=== PATIENT | male | born 1970 | race American Indian/Alaskan Native ===

== ENCOUNTER 2021-12-04 14:32 | Emergency (ER) | payer SELFPAY ==
--- NOTE | 2021-12-04 15:54 | XRay Report ---
CHEST 1 VIEW 12/04/2021 2:40 PM INDICATION / CLINICAL INFORMATION: Chest pain. COMPARISON: None available. FINDINGS: SUPPORT DEVICES: None. HEART / MEDIASTINUM: No significant abnormality. LUNGS / PLEURA: No significant pulmonary abnormality. No significant pleural effusion. No pneumothora x. ADDITIONAL FINDINGS: No significant additional findings. IMPRESSION: 1. No acute abnormality of the chest. Signer Name: Jayson Llamas MD Signed: 12/04/2021 3:46 PM Workstation Name: [id number]
[2021-12-04 15:56] LABS: Basophils % (Auto) 1.1 % (0.0-1.8); Hematocrit 32.8 % (35.5-45.6); Hemoglobin 11.4 gm/dl (11.8-15.2); Lymphocytes # (Auto) 1.6 K/mm3 (1.2-5.4); Lymphocytes % (Auto) 45.7 % (13.4-35.0); Mean Corpuscular HGB Conc 35 % (32-34); Mean Corpuscular Volume 101 fl (84-94); Monocytes # (Auto) 0.4 K/mm3 (0.0-0.8); Monocytes % (Auto) 12.9 % (0.0-7.3); Platelet Count 116 K/mm3 (140-440); Red Blood Count 3.24 M/mm3 (3.65-5.03); Red Cell Distribution Width 15.2 % (13.2-15.2)
[2021-12-04 16:20] LABS: Alanine Aminotransferase 30 units/L (7-56); Albumin 4.1 g/dL (3.9-5); Blood Urea Nitrogen 3 mg/dL (9-20); Calcium 8.3 mg/dL (8.4-10.2); Hemolysis Index 4
[2021-12-04 16:22] LABS: BUN/Creatinine Ratio 5
[2021-12-04] MEDS ORDERED: NITROGLYCERIN 0.4 MG TAB SUBL SL ONE (16:54)
--- NOTE | 2021-12-04 17:06 | Emergency Department Report ---
ED General Adult HPI - General Chief complaint: Chest Pain Stated complaint: CHEST PAIN Time Seen by Provider: 12/04/21 15:23 Source: patient, EMS Mode of arrival: Stretcher Limitations: No Limitations - History of Present Illness Initial comments: Patient presents with complaints of chest pain, retrosternal, dull/heavy, non- radiating, 5/10, not worsened or relieved by anything. Denies SOB, palpitations, diaphoresis, leg swelling, pain in his/her calves, recent travel, immobilization, surgery, hospitalization, sex HRT use. Severity scale (0 -10): 4 - Related Data Allergies Allergy/AdvReac Type Severity Reaction Status Date / Time No Known Allergies Allergy Verified 12/04/21 14:39 ED Review of Systems ROS: Stated complaint: CHEST PAIN Other details as noted in HPI Comment: All other systems reviewed and negative Constitutional: denies: chills, fever ED Past Medical Hx - Past Medical History Previous Medical History?: Yes Hx Hypertension: Yes Hx Diabetes: Yes - Surgical History Past Surgical History?: No - Social History Smoking Status: Current Every Day Smoker ED Physical Exam - General Limitations: No Limitations General appearance: alert, in no apparent distress - Head Head exam: Present: atraumatic, normocephalic - Eye Eye exam: Present: PERRL, EOMI - ENT ENT exam: Present: mucous membranes moist, other (airway patent) - Neck Neck exam: Present: other (supple; no JVD) - Respiratory Respiratory exam: Present: other (good air entry, nml I:E, CTAB, no use of PEDRO LUIS) - Cardiovascular Cardiovascular Exam: Present: regular rate. Absent: rubs, gallop - GI/Abdominal GI/Abdominal exam: Present: soft, normal bowel sounds. Absent: distended, tenderness, guarding, rebound - Extremities Exam Extremities exam: Present: calf tenderness (bilateral), other (no lower extremity edema) - Back Exam Back exam: Present: full ROM. Absent: tenderness - Neurological Exam Neurological exam: Present: alert, oriented X3, CN II-XII intact. Absent: motor sensory deficit ED Course Vital Signs 12/04/21 12/04/21 12/04/21 14:36 15:11 17:20 Temperature 98 F 97.8 F Pulse Rate 120 H 98 H 90 Respiratory 18 16 Rate Blood Pressure 139/94 163/80 Blood Pressure 160/100 134/86 [Right] O2 Sat by Pulse 97 92 Oximetry 12/04/21 17:22 Temperature Pulse Rate 90 Respiratory 14 Rate Blood Pressure Blood Pressure 163/108 [Right] O2 Sat by Pulse 100 Oximetry ED Medical Decision Making - Lab Data Result diagrams: 12/04/21 15:41 12/04/21 15:41 Laboratory Tests 12/04/21 12/04/21 12/04/21 15:41 15:41 15:41 WBC 3.5 L RBC 3.24 L Hgb 11.4 L Hct 32.8 L MCV 101 H MCH 35 H MCHC 35 H RDW 15.2 Plt Count 116 L Lymph % (Auto) 45.7 H [place] % (Auto) 12.9 H Eos % (Auto) 1.0 Baso % (Auto) 1.1 Lymph # (Auto) 1.6 [place] # (Auto) 0.4 Eos # (Auto) 0.0 Baso # (Auto) 0.0 Seg Neutrophils % 39.3 L Seg Neutrophils # 1.4 L D-Dimer 759.36 H Sodium 145 Potassium 3.2 L Chloride 99.2 Carbon Dioxide 27 Anion Gap 22 BUN 3 L Creatinine 0.6 L Estimated GFR > 60 BUN/Creatinine Ratio 5 Glucose 232 H Calcium 8.3 L Total Bilirubin 0.80 AST 126 H ALT 30 Alkaline Phosphatase 54 Troponin T 0.012 Total Protein 7.5 Albumin 4.1 Albumin/Globulin Ratio 1.2 CXR: no acute cardiopulmonary process CTA chest: no PE or aortic dissection EKG: HR 90, SR, nml MI, narrow QRSTWI in II, III, aVF, V4 - V6, no significant ST elevations in contiguous leads - Medical Decision Making Diff dz: - likely 2/2 L cardiac strain from hypertensive emergency. Need to r/o ACS (HEART score of 6). Pneumonia, pneumothorax, PE, aortic dissection ruled out. Received aspirin 324 mg PO x 1, nitroglycerin 0.4 mg SL x 1. CP resolved. BP 2 34/120 -> 154/117 Critical Care Time: Yes Critical care time in (mins) excluding proc time.: 45 Critical care attestation.: If time is entered above; I have spent that time in minutes in the direct care of this critically ill patient, excluding procedure time. ED Disposition Clinical Impression: Chest pain, Accelerated hypertension Disposition: ADMITTED INPATIENT Is pt being admited?: Yes Does the pt Need Aspirin: No Condition: Stable Instructions: Nonspecific Chest Pain, Adult, Hypertension (ED) Referrals: PRIMARY CARE,MD [Primary Care Provider] - 3-5 Days Time of Disposition: 18:45 (Patient admitted to Dr. Danielson. Sign out was given by me to the admitting physician. )
[2021-12-04 17:24] VITALS: BP 163/108
--- NOTE | 2021-12-04 17:42 | Cat Scan Report ---
CTA CHEST WITH CONTRAST INDICATION / CLINICAL INFORMATION: Chest pain; elevated D-dimer; accelerated HTN. TECHNIQUE: Axial CT images were obtained through the chest after injection of 100 cc Omni 350 IV cont rast. 3 plane MIP and/or 3D reconstructions were produced. All CT scans at this location are performe d using CT dose reduction for ALARA by means of automated exposure control. COMPARISON: None available. FINDINGS: PULMONARY EMBOLUS: None. THORACIC AORTA: No significant abnormality. HEART: No significant abnormality. CORONARY ARTERY CALCIFICATION: Absent -- None. MEDIASTINUM / RICK: No significant abnormality. PLEURA: No pleural effusion. No pneumothorax. LUNGS: No acute air space or interstitial disease. ADDITIONAL FINDINGS: None. UPPER ABDOMEN: Marked hepatic steatosis. SKELETAL STRUCTURES: No significant osseous abnormality. IMPRESSION: 1. No CT evidence for pulmonary embolism. 2. No acute findings. 3. Hepatic steatosis Signer Name: Alec Scott MD Signed: 12/04/2021 5:38 PM Workstation Name: [id number]
[2021-12-04] MEDS ORDERED: ASPIRIN 81 MG TAB CHEW PO ONE (19:27)
--- NOTE | 2021-12-04 22:40 | History and Physical Report ---
History of Present Illness Date of examination: 12/04/21 History of present illness: Patient presents with complaints of chest pain, retrosternal, dull/heavy, non- radiating, 5/10, not worsened or relieved by anything. Denies SOB, palpitations, diaphoresis, leg swelling, pain in his/her calves, recent travel, immobiliza tion, surgery, hospitalization, sex HRT use. Severity scale (0 -10): 4 - Related Data Allergies Allergy/AdvReac Type Severity Reaction Status Date / Time No Known Allergies Allergy Verified 12/04/21 14:39 - Past Medical History Previous Medical History?: Yes - Surgical History Past Surgical History?: No - Social History Smoking Status: Current Every Day Smoker Review of Systems ROS: Stated complaint: CHEST PAIN Other details as noted in HPI Comment: All other systems reviewed and negative Constitutional: denies: chills, fever Medications and Allergies Allergies Allergy/AdvReac Type Severity Reaction Status Date / Time No Known Allergies Allergy Verified 12/04/21 14:39 Exam - Constitutional Vitals: Temp Pulse Resp BP Pulse Ox 97.8 F 90 14 163/108 100 12/04/21 15:11 12/04/21 17:22 12/04/21 17:22 12/04/21 17:22 12/04/21 17:22 HEART Score - HEART Score Troponin: Troponin T 0.012 ng/mL (0.00-0.029) 12/04/21 15:41 Results - Labs CBC & Chem 7: 12/04/21 15:41 12/04/21 15:41 Labs: Laboratory Last Values WBC 3.5 K/mm3 (4.5-11.0) L 12/04/21 15:41 RBC 3.24 M/mm3 (3.65-5.03) L 12/04/21 15:41 Hgb 11.4 gm/dl (11.8-15.2) L 12/04/21 15:41 Hct 32.8 % (35.5-45.6) L 12/04/21 15:41 MCV 101 fl (84-94) H 12/04/21 15:41 MCH 35 pg (28-32) H 12/04/21 15:41 MCHC 35 % (32-34) H 12/04/21 15:41 RDW 15.2 % (13.2-15.2) 12/04/21 15:41 Plt Count 116 K/mm3 (140-440) L 12/04/21 15:41 Lymph % (Auto) 45.7 % (13.4-35.0) H 12/04/21 15:41 [place] % (Auto) 12.9 % (0.0-7.3) H 12/04/21 15:41 Eos % (Auto) 1.0 % (0.0-4.3) 12/04/21 15:41 Baso % (Auto) 1.1 % (0.0-1.8) 12/04/21 15:41 Lymph # (Auto) 1.6 K/mm3 (1.2-5.4) 12/04/21 15:41 [place] # (Auto) 0.4 K/mm3 (0.0-0.8) 12/04/21 15:41 Eos # (Auto) 0.0 K/mm3 (0.0-0.4) 12/04/21 15:41 Baso # (Auto) 0.0 K/mm3 (0.0-0.1) 12/04/21 15:41 Seg Neutrophils % 39.3 % (40.0-70.0) L 12/04/21 15:41 Seg Neutrophils # 1.4 K/mm3 (1.8-7.7) L 12/04/21 15:41 D-Dimer 759.36 ng/mlDDU (0-234) H 12/04/21 15:41 Sodium 145 mmol/L (137-145) 12/04/21 15:41 Potassium 3.2 mmol/L (3.6-5.0) L 12/04/21 15:41 Chloride 99.2 mmol/L (98-107) 12/04/21 15:41 Carbon Dioxide 27 mmol/L (22-30) 12/04/21 15:41 Anion Gap 22 mmol/L 12/04/21 15:41 BUN 3 mg/dL (9-20) L 12/04/21 15:41 Creatinine 0.6 mg/dL (0.8-1.3) L 12/04/21 15:41 Estimated GFR > 60 ml/min 12/04/21 15:41 BUN/Creatinine Ratio 5 % 12/04/21 15:41 Glucose 232 mg/dL (75-100) H 12/04/21 15:41 Calcium 8.3 mg/dL (8.4-10.2) L 12/04/21 15:41 Total Bilirubin 0.80 mg/dL (0.1-1.2) 12/04/21 15:41 AST 126 units/L (5-40) H 12/04/21 15:41 ALT 30 units/L (7-56) 12/04/21 15:41 Alkaline Phosphatase 54 units/L (35-129) 12/04/21 15:41 Troponin T 0.012 ng/mL (0.00-0.029) 12/04/21 15:41 Total Protein 7.5 g/dL (6.3-8.2) 12/04/21 15:41 Albumin 4.1 g/dL (3.9-5) 12/04/21 15:41 Albumin/Globulin Ratio 1.2 % 12/04/21 15:41
[2021-12-04] MEDS ORDERED: MORPHINE 2 MG/1 ML INJ IV PRN (22:41)
[2021-12-04] MEDS ORDERED: ACETAMINOPHEN 325 MG TAB PO PRN ×2 (22:41→22:44)
[2021-12-04] MEDS ORDERED: ONDANSETRON 4 MG/2 ML INJ IV PRN ×2 (22:41→22:44)
[2021-12-04] MEDS ORDERED: oxyCODONE /ACETAMINOPHEN 5-325MG TAB PO PRN (22:41)
[2021-12-04] MEDS ORDERED: SODIUM CHLORIDE 0.9% 1000 ML 1,000 ML IV SCH (22:45)
[2021-12-04] MEDS ORDERED: FAMOTIDINE 20 MG/2 ML INJ IV SCH (23:00)
--- NOTE | 2021-12-05 07:05 | Event Note ---
Date: 12/04/21 Admission orders were written Patient left AMA
[2021-12-05] MEDS ORDERED: HEPARIN 5,000 UNIT/1 ML VIAL SUB-Q SCH (10:00)
[2021-12-05] MEDS ORDERED: NICOTINE 14 MG/24 HR PATCH TD SCH (10:00)
--- NOTE | 2021-12-05 10:35 | Electrocardiograph Report ---
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
== END 2021-12-04 21:04 | disposition admitted as inpatient to this hospital (09) ==
LOC: ED 14:32
DX: I10 Essential (primary) hypertension (principal); E11.9 Type 2 diabetes mellitus without complications; F17.200 Nicotine dependence, unspecified, uncomplicated; Z79.899 Other long term (current) drug therapy
CPT/HCPCS: 36415; 71045; 71275; 80053; 84484; 85025; 85379; 93005; 99285; Q9967

== ENCOUNTER 2021-12-07 15:02 | Emergency (ER) | payer SELFPAY ==
[2021-12-07] MEDS ORDERED: ASPIRIN 325 MG TAB PO ONE (16:13)
[2021-12-07 16:20] VITALS: BP 129/80
[2021-12-07 16:38] LABS: Hematocrit 33.2 % (35.5-45.6); Hemoglobin 11.4 gm/dl (11.8-15.2); Mean Corpuscular HGB Conc 34 % (32-34); Mean Corpuscular Volume 100 fl (84-94); Platelet Count 112 K/mm3 (140-440); Red Blood Count 3.31 M/mm3 (3.65-5.03); Red Cell Distribution Width 15.4 % (13.2-15.2)
--- NOTE | 2021-12-07 16:45 | Emergency Department Report ---
ED Chest Pain HPI - General Chief Complaint: Chest Pain Stated Complaint: CHEST PAIN Time Seen by Provider: 12/07/21 15:54 Source: EMS, old records reviewed Mode of arrival: Stretcher Limitations: No Limitations - History of Present Illness Initial Comments: 51-year-old male presents once again to the hospital complaints of left-sided chest pain since June. Patient does not see a doctor on a regular basis and is not currently taking any medications. He is a smoker and states his blood pressure was elevated during his recent ER visit here on December 04. At that time patient received chest pain evaluation included EKG, cardiac enzymes, chest x-ra y, CT angiogram chest x-rays negative for acute pathology. ED doctor admitted patient wanted to admit patient at that time but he signed out AGAINST MEDICAL ADVICE. States his left-sided intermittent chest pain is still present and interfering with his ability to sleep he denies aggravating or alleviating factors. Positive associated shortness of breath reported. He denies history of PE/DVT, calf tenderness, recent travel, known elevated cholesterol, alcohol abuse, drug abuse, or family history of CAD. Severity scale (0 -10): 3 - Related Data Previous Rx's Medication Instructions Recorded Last Taken Type Amlodipine Besylate [Norvasc] 5 mg PO DAILY #30 tab 12/07/21 Unknown Rx Aspirin 325 mg PO DAILY #30 tablet 12/07/21 Unknown Rx Multivitamin with Folic Acid [[facility]vs 400 mcg PO DAILY #30 tab 12/07/21 Unknown Rx One Daily Essential Tablet] Potassium Chloride [K-Dur] 20 meq PO BID #6 tab 12/07/21 Unknown Rx Allergies Allergy/AdvReac Type Severity Reaction Status Date / Time No Known Allergies Allergy Verified 12/07/21 15:06 Heart Score - HEART Score History: Slightly suspicious EKG: Non-specific Age: 45-65 Risk factors: 1-2 risk factors Troponin: < normal limit HEART Score: 3 - EKG Read Time Time EKG Completed: 15:10 EKG Read Time: 15:20 ED Review of Systems ROS: Stated complaint: CHEST PAIN Other details as noted in HPI Comment: All other systems reviewed and negative ED Past Medical Hx - Past Medical History Previous Medical History?: Yes Hx Hypertension: Yes Hx Diabetes: Yes - Social History Smoking Status: Current Every Day Smoker - Medications Home Medications: Home Medications Medication Instructions Recorded Confirmed Last Taken Type Amlodipine Besylate [Norvasc] 5 mg PO DAILY #30 tab 12/07/21 Unknown Rx Aspirin 325 mg PO DAILY #30 tablet 12/07/21 Unknown Rx Multivitamin with Folic Acid [[facility] 400 mcg PO DAILY #30 tab 12/07/21 Unknown Rx One Daily Essential Tablet] Potassium Chloride [K-Dur] 20 meq PO BID #6 tab 12/07/21 Unknown Rx ED Physical Exam - General Limitations: No Limitations - Other Other exam information: General: No acute distress Head: Atraumatic Eyes: normal appearance ENT: Moist mucous membranes Neck: Normal appearance, no midline tenderness Chest: Clear to auscultation bilaterally, reproducible left anterior chest wall tenderness CV: Regular rate and rhythm Abdomen: Soft, normal bowel sounds, nontender, nondistended, no rebound or guarding Back: Normal inspection Extremity: Normal inspection, no calf tenderness or leg edema Neuro: Alert O x 3, no facial asymmetry, speech clear, no gross motor sensory deficit Psych: Appropriate behavior Skin: No rash ED Course Vital Signs 12/07/21 12/07/21 12/07/21 15:03 15:17 15:30 Temperature Pulse Rate 96 H 108 H 77 Respiratory 16 12 18 Rate Blood Pressure 138/84 Blood Pressure 167/110 [Left] O2 Sat by Pulse 97 95 Oximetry 12/07/21 12/07/21 12/07/21 15:42 15:46 16:00 Temperature 98.6 F Pulse Rate 77 75 Respiratory 14 15 Rate Blood Pressure 138/84 129/80 Blood Pressure [Left] O2 Sat by Pulse 96 97 Oximetry 12/07/21 12/07/21 12/07/21 16:16 16:26 16:30 Temperature Pulse Rate 91 H 85 Respiratory 13 11 L Rate Blood Pressure 129/80 129/80 Blood Pressure [Left] O2 Sat by Pulse 97 97 96 Oximetry 12/07/21 12/07/21 12/07/21 16:46 17:00 17:16 Temperature Pulse Rate 75 74 70 Respiratory 17 14 12 Rate Blood Pressure 129/80 129/80 129/80 Blood Pressure [Left] O2 Sat by Pulse 97 97 95 Oximetry 12/07/21 17:30 Temperature Pulse Rate 96 H Respiratory 14 Rate Blood Pressure 129/80 Blood Pressure [Left] O2 Sat by Pulse 96 Oximetry MAGDA score - Magda Score Age > 65: (0) No Aspirin use within the Past 7 Days: (0) No 3 or more CAD Risk Factors: (0) No 2 or more Angina events in past 24 hrs: (1) Yes Known CAD with more than 50% Stenosis: (0) No Elevated Cardiac Markers: (0) No ST Deviation Greater than 0.5mm: (0) No MAGDA Score: 1 ED Medical Decision Making - Lab Data Result diagrams: 12/07/21 16:26 12/07/21 16:26 Lab Results 12/07/21 12/07/21 12/07/21 Range/Units 16:26 16:26 Unknown WBC 3.4 L (4.5-11.0) K/mm3 RBC 3.31 L (3.65-5.03) M/mm3 Hgb 11.4 L (11.8-15.2) gm/dl Hct 33.2 L (35.5-45.6) % MCV 100 H (84-94) fl MCH 35 H (28-32) pg MCHC 34 (32-34) % RDW 15.4 H (13.2-15.2) % Plt Count 112 L (140-440) K/mm3 Lymph % (Auto) 44.5 H (13.4-35.0) % [place] % (Auto) 13.4 H (0.0-7.3) % Eos % (Auto) 1.1 (0.0-4.3) % Baso % (Auto) 0.7 (0.0-1.8) % Lymph # (Auto) 1.6 (1.2-5.4) K/mm3 [place] # (Auto) 0.5 (0.0-0.8) K/mm3 Eos # (Auto) 0.0 (0.0-0.4) K/mm3 Baso # (Auto) 0.0 (0.0-0.1) K/mm3 Add Manual Diff Complete Seg Neutrophils % 40.3 (40.0-70.0) % Seg Neutrophils # 1.4 L (1.8-7.7) K/mm3 Sodium 142 (137-145) mmol/L Potassium 2.8 L* (3.6-5.0) mmol/L Chloride 99.3 (98-107) mmol/L Carbon Dioxide 24 (22-30) mmol/L Anion Gap 22 mmol/L BUN 3 L (9-20) mg/dL Creatinine 0.5 L (0.8-1.3) mg/dL Estimated GFR > 60 ml/min BUN/Creatinine Ratio 6 % Glucose 124 H (75-100) mg/dL Calcium 8.1 L (8.4-10.2) mg/dL Magnesium 1.40 L (1.7-2.3) mg/dL Troponin T < 0.010 (0.00-0.029) ng/mL - EKG Data -: EKG Interpreted by Me EKG shows normal: sinus rhythm, ST-T waves (LVH, and diffuse T wave inversions inferior lateral leads, no STEMI) Rate: normal - EKG Data When compared to previous EKG there are: no significant change - Medical Decision Making 51-year-old male presents to the hospital once again for persistent left-sided chest pain. Patient signed out AGAINST MEDICAL ADVICE after ED evaluation on December 04. EKG similar to previous. Patient did have elevated D-dimer last visit with a negative CT angiogram chest. Patient likely has underlying untreated hypertension and will be started on medications. Clinically chest pain appears to be musculoskeletal and reproducible and ongoing since June however, given patient's several cardiac risk factors and EKG findings, admission was recommended. Patient has once again declined admission at this time. He was provided aspirin in the ED. Outpatient cardiology follow-up and PMD follow-up will be provided I highly suspect that patient is a alcoholic. He states he drinks here and there and denies daily use. He does have elevated AST, hypokalemia, and hypomagnesemia. P.o. potassium and IV magnesium ordered. Multivitamin will be prescribed Critical Care Time: No Critical care attestation.: If time is entered above; I have spent that time in minutes in the direct care of this critically ill patient, excluding procedure time. ED Disposition Clinical Impression: Atypical chest pain, HTN (hypertension), Elevated AST (SGOT), Hypomagnesemia, Hypokalemia Disposition: 07 LEFT AGAINST MEDICAL ADVICE Is pt being admited?: No Does the pt Need Aspirin: No Condition: Stable Instructions: Alcohol Use Disorder, Hypomagnesemia, Nonspecific Chest Pain, Adult, Hypertension, Adult, [id number], Potassium Content of Foods, Hypertension (ED) Additional Instructions: Take the medication as prescribed. You have declined admission at this time. Please follow with your primary care doctor and microbiology laboratory manager provided. Return if symptoms worsen as indicated by your discharge instructions. Prescriptions: Aspirin 325 mg PO DAILY #30 tablet Multivitamin with Folic Acid [[facility]vs One Daily Essential Tablet] 400 mcg PO DAILY #30 tab Potassium Chloride [K-Dur] 20 meq PO BID #6 tab Amlodipine Besylate [Norvasc] 5 mg PO DAILY #30 tab Referrals: [facility] [Provider Group] - 2-3 Days (Primary care clinic) DAVID YOUSSEF MD [Staff Physician] - 3-5 Days (Primary care doctor) TRISTIN PURVIS MD [Staff Physician] - 3-5 Days (Data Integrity Consultant) Forms: AMA Form
[2021-12-07 16:47] LABS: Eosinophils % (Auto) 1.1 % (0.0-4.3); Lymphocytes # (Auto) 1.6 K/mm3 (1.2-5.4); Lymphocytes % (Auto) 44.5 % (13.4-35.0); Monocytes # (Auto) 0.5 K/mm3 (0.0-0.8); Monocytes % (Auto) 13.4 % (0.0-7.3)
[2021-12-07 16:48] LABS: Basophils % (Auto) 0.7 % (0.0-1.8)
[2021-12-07 16:55] LABS: Blood Urea Nitrogen 3 mg/dL (9-20); Calcium 8.1 mg/dL (8.4-10.2); Hemolysis Index 3
[2021-12-07 16:56] LABS: BUN/Creatinine Ratio 6
[2021-12-07] MEDS ORDERED: POTASSIUM CHLORIDE ER 20 MEQ TAB PO ONE (16:58)
--- NOTE | 2021-12-07 17:00 | XRay Report ---
CHEST 2 VIEWS INDICATION / CLINICAL INFORMATION: Chest Pain. COMPARISON: 12/04/2021 FINDINGS: SUPPORT DEVICES: None. HEART / MEDIASTINUM: No significant abnormality. LUNGS / PLEURA: No significant pulmonary or pleural abnormality. No pneumothorax. ADDITIONAL FINDINGS: No significant additional findings. IMPRESSION: 1. No acute findings. No interval change. Signer Name: Ada Lara MD Signed: 12/07/2021 4:56 PM Workstation Name: [id number]
[2021-12-07] MEDS ORDERED: MAGNESIUM SULFATE 2 GM/50 ML BAG IV ONE (17:14)
--- NOTE | 2021-12-09 13:08 | Electrocardiograph Report ---
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 Electronically Signed On 12-09-2021 13:08:11 EDT by Lukas Danielson
== END 2021-12-07 19:07 | disposition left against medical advice (07) ==
LOC: ED 15:02
DX: R07.89 Other chest pain (principal); R74.01 Elevation of levels of liver transaminase levels; E83.42 Hypomagnesemia; E87.6 Hypokalemia; I10 Essential (primary) hypertension; E11.9 Type 2 diabetes mellitus without complications; F17.290 Nicotine dependence, other tobacco product, uncomplicated
CPT/HCPCS: 36415; 71046; 80048; 83735; 84484; 85025; 93005; 96365; 99284; J3475